=== PATIENT | female | born 1980 | race Caucasian/White ===

== ENCOUNTER 2019-05-01 09:18 | Emergency (ER) | payer OTHER, SELFPAY ==
--- NOTE | ~2019-05-01 | XR_ITS ---
XR finger 1st LT min 2V 05/01/2019 09:41 Indication: Trauma to the left first finger. Finger pain. Procedure: 3 views left first finger Comparison: No prior studies for comparison. Findings: There are mild degenerative changes of the first CMC joint. No fracture, subluxation or dis location. No significant soft tissue abnormality. No radiopaque foreign bodies. Impression: 1: No acute fracture. Reviewed, dictated and finalized at location A. GER FRAUD Impression: 1: No acute fracture.
[2019-05-01 09:27] VITALS: BP 118/69; PULSE 71; RESP 16; TEMP 36.6; O2SAT 100
--- NOTE | 2019-05-01 09:39 | ED.UPPEXIN ---
HPI - Extremity Injury (Upper) General Chief Complaint: Extremity Injury, Upper Stated Complaint: INJURED FINGER Time Seen by Provider: 05/01/19 09:44 Source: patient and RN notes reviewed Mode of arrival: ambulatory Limitations: no limitations History of Present Illness HPI narrative: 38-year-old female who presents to [facility] with 3-day history of injury to left thumb.Patient states she smashed her thumb in the car door on and has pain to the distal region of her thumb and nailbed is black. Patient states that she put a hole in her nailbed and blood escaped which made the throbbing in her nailbed resolve, nail remain s dark in appearance. Patient has some swelling to the distal aspect of her left thumb, full mobility of thumb with no complaints of any tingling or numbness to left thumb. MD complaint: injury to: left and finger (1st) Onset (ago): day(s) Other Extremity Injury: Left: fingers (1st digit) Other injuries: none Handedness: right Place: other Severity: moderate Severity scale (1-10): 4 (4) Relieving factors: cold therapy and other (patient put hole in nail to relieve pressure with blood escaping) Exacerbating factors: other (palpation) Context: direct blow Associated symptoms: denies other symptoms Treatments prior to arrival: NSAIDS Related Data Home Medications Medication Instructions Recorded Confirmed cholecalciferol (vitamin D3) 125 5,000 unit PO DAILY 04/08/19 05/01/19 mcg (5,000 unit) capsule Allergies Allergy/AdvReac Type Severity Reaction Status Date / Time Penicillins Allergy Unknown Hives Verified 05/01/19 09:26 Review of Systems Review of Systems: Narrative: CONSTITUTIONAL: Denies fever, chills, or sweats. EYES: Denies visual changes, redness, or discharge. ENT: Denies rhinorrhea, congestion, sore throat, or otalgia. CARDIOVASCULAR: Denies chest pain, palpitations, or edema. RESPIRATORY: Denies cough or dyspnea. GASTROINTESTINAL: Denies abdominal pain, nausea, vomiting, or diarrhea. GENITOURINARY: Denies dysuria or hematuria. SKIN: Denies rash or itching. MUSCULOSKELETAL: Denies back pain, joint pain, or myalgia.positive pain to left distal thumb and nailbed. NEUROLOGIC: Denies headache, numbness, or weakness. PSYCHIATRIC: Denies anxiety or depression. All systems reviewed & are unremarkable except as noted in HPI and below PMFSH Family History Family History Grandparent Heart attack Father No problems noted. Mother Family history of hypercholesterolemia Hypertension Skin cancer Lichen sclerosus Grandparent Astrocytoma brain tumor Grandparent Family history of prostate cancer Heart failure Other Family history of malignant neoplasm of breast Social History Social History Smoking status: Never smoker Alcohol intake: current Living arrangements: with family Gender identity (if verbalized by the patient): Female Comments At time of signature, agree with nursing past medical, surgical, social and family history. There is no relevant family history pertinent to the presenting complaint Exam Narrative: Exam Narrative: GENERAL: Well-appearing, well-nourished, and in no acute distress. HEAD: Normocephalic, atraumatic. EYES: PERRLA and EOMI. ENT: Nares clear, no rhinorrhea or epistaxis. Mucous membranes moist. NECK: Supple. CHEST: Clear to auscultation. No respiratory distress. HEART: Regular rate and rhythm. No murmur heard. Normal peripheral pulses. ABDOMEN: Soft, nontender, nondistended, normal active bowel sounds. EXTREMITIES: Normal range of motion. No edema.with exception to pain and swelling to distal left thumb with nail bruising present no break in skin integrity, denies any tingling or numbness to her left thumb, strong left radial pulse present.Patient put hole in nail and drained blood from under nail. SKIN: Warm, dry, no rash. N
== END 2019-05-01 10:25 | disposition home or self-care (01) ==
PROVIDERS: Emergency Provider Registered Nurse; PCP Internal Medicine
DX: S60.112A Contusion of left thumb with damage to nail, initial encounter (principal); W23.0XXA Caught, crushed, jammed, or pinched between moving objects, initial encounter
CPT/HCPCS: 73140; 99213; G0463

== ENCOUNTER → 2020-09-18 16:50 | Outpatient (CLI) | payer OTHER, SELFPAY ==
--- NOTE | ~2020-09-18 | MM_ITS ---
EXAMINATION: MM screening [facility] BI w felicitas HISTORY: Screening mammogram TECHNIQUE: Craniocaudal and mediolateral oblique 3-D tomosynthesis images were obtained and synthetic 2-D images were generated. CAD analysis was submitted and interpreted. COMPARISON: 12/10/2018 bilateral digital screening mammogram BREAST PARENCHYMAL COMPOSITION: The breasts are extremely dense, which lowers the sensitivity of mamm ography. FINDINGS: There is no evidence of suspicious mass, calcification, or architectural distortion to sugg est malignancy in either breast. There has been no suspicious interval change. IMPRESSION: 1. No mammographic evidence of malignancy. 2. Recommend routine screening mammography in one year. BI-RADS Category 1: Negative Reviewed, dictated and finalized at location A.
== END ==
PROVIDERS: Visit Provider Obstetrics & Gynecology
DX: Z12.31 Encounter for screening mammogram for malignant neoplasm of breast (principal)
CPT/HCPCS: 77063; 77067

== ENCOUNTER → 2021-12-18 11:24 | Outpatient (CLI) | payer OTHER, SELFPAY ==
--- NOTE | ~2021-12-18 | MM_ITS ---
EXAMINATION: MM screening [facility] BI w felicitas HISTORY: Screening mammogram TECHNIQUE: Craniocaudal and mediolateral oblique 3-D tomosynthesis images were obtained and synthetic 2-D images were generated. CAD analysis was submitted and interpreted. COMPARISON: 09/18/2020, 12/10/2018 BREAST PARENCHYMAL COMPOSITION: The breasts are extremely dense, which lowers the sensitivity of mamm ography. FINDINGS: There is no suspicious mass, calcification, or architectural distortion to suggest malignan cy in either breast. There has been no suspicious interval change. IMPRESSION: 1. No mammographic evidence of malignancy. 2. Recommend routine screening mammography in one year. BI-RADS Category 1: Negative Reviewed, dictated and finalized at location A.
== END ==
PROVIDERS: PCP Obstetrics & Gynecology; Visit Provider Obstetrics & Gynecology
DX: Z12.31 Encounter for screening mammogram for malignant neoplasm of breast (principal)
CPT/HCPCS: 77063; 77067

== ENCOUNTER 2023-01-30 09:17 | Emergency (ER) | payer OTHER, SELFPAY ==
[2023-01-30 09:27] VITALS: BP 128/85; PULSE 83; RESP 16; TEMP 36.6; O2SAT 98
--- NOTE | 2023-01-30 09:28 | ED.URI ---
HPI - URI/Sore Throat General Chief Complaint: Upper Respiratory Infection Stated Complaint: Cough Time Seen by Provider: 01/30/23 09:29 Source: patient Mode of arrival: ambulatory Limitations: no limitations History of Present Illness HPI Narrative: 42-year-old presents for complaint of cough for over 1 week. States she started over the past couple of days with a ?gurgling sound? in the chest and cough is now productive of thick sputum. At the onset she felt weakness and chills, tested negative for covid x2 at home last week. She denies shortness of breath, wheezing, nausea, vomiting, diarrhea, fevers or chills. She is taking [id number] NyQuil for symptoms. Related Data Allergies Allergy/AdvReac Type Severity Reaction Status Date / Time Penicillins Allergy Unknown Hives Verified 01/30/23 09:22 Review of Systems Review of Systems: CONSTITUTIONAL: Denies body aches, fever, chills, or sweats. EYES: Denies visual changes, redness, or discharge. ENT: Denies rhinorrhea, congestion, sore throat, or otalgia. CARDIOVASCULAR: Denies chest pain, palpitations, or edema. RESPIRATORY: Reports cough, denies sob, wheezing. GASTROINTESTINAL: Denies abdominal pain, nausea, vomiting, or diarrhea. GENITOURINARY: Denies dysuria or hematuria. SKIN: Denies rash, itching, or wounds. MUSCULOSKELETAL: Denies back pain, joint pain, or myalgia. NEUROLOGIC: Denies headache, numbness, tingling, or weakness. All systems reviewed & are unremarkable except as noted in HPI and below PMFSH Past Medical History Medical History (Updated 01/30/23 @ 09:37 by Joelle Bundy APRN) No pertinent past medical history Family History Family History Grandparent Heart attack Father No problems noted. Mother Family history of hypercholesterolemia Hypertension Skin cancer Lichen sclerosus Grandparent Astrocytoma brain tumor Grandparent Family history of prostate cancer Heart failure Other Family history of malignant neoplasm of breast Social History Social History Smoking status: Never smoker Alcohol intake: current Alcohol use details: 1-2 glasses of wine a night Living arrangements: with family Gender identity (if verbalized by the patient): Female Comments At time of signature, I have reviewed and agree with nursing past medical, surgical, social and family history unless otherwise noted. Please see nursing chart for further information. There is no relevant family history pertinent to the presenting complaint Exam Narrative: GENERAL: Well-appearing, in no acute distress. EYES: EOMI. No redness or drainage. Conjunctivae normal. ENT: Mucous membranes pink and moist. No rhinorrhea. TMs normal bilaterally. Throat normal. Uvula midline. NECK: Normal AROM. Supple. CHEST: No respiratory distress. Faint left posterior wheeze, otherwise clear. Speaks full sentences. HEART: Regular rate and rhythm. No murmur appreciated. ABDOMEN: Soft, nontender, nondistended, normal active bowel sounds. EXTREMITIES: Normal range of motion. No edema. SKIN: Warm, dry, no rash. Capillary refill normal. Normal skin turgor. NEURO: Alert and oriented x3. Gait steady. PSYCH: Normal affect. Course Course Emergency Course: Patient is aware of diagnosis, understands and agrees to treatment plan. Anticipatory guidance given. Patient agrees to follow-up as directed and is aware of reasons to seek care at the emergency department. Portions of this record may have been created with voice recognition software Level of Care: Express Care Visit Vital Signs Vital signs: Vital Signs Temperature 97.8 F 01/30/23 09:27 Pulse Rate 83 01/30/23 09:27 Respiratory Rate 16 01/30/23 09:27 Blood Pressure 128/85 01/30/23 09:27 Pulse Oximetry 98 01/30/23 09:27 Temperature 97.8 F 01/30/23 09:27 Pulse Ra
== END 2023-01-30 09:39 | disposition home or self-care (01) ==
PROVIDERS: Emergency Provider Nurse Practitioner Family; PCP Internal Medicine
DX: J40 Bronchitis, not specified as acute or chronic (principal)
CPT/HCPCS: 99213; G0463

== ENCOUNTER → 2023-03-12 11:34 | Outpatient (CLI) | payer OTHER, SELFPAY ==
--- NOTE | ~2023-03-12 | MM_ITS ---
EXAMINATION: MM screening [facility] BI w felicitas HISTORY: Screening TECHNIQUE: Craniocaudal and mediolateral oblique 3-D tomosynthesis images were obtained and synthetic 2-D images were generated. CAD analysis was submitted and interpreted. COMPARISON: Comparison to multiple prior studies sequentially, with oldest reviewed study dated 12/10. BREAST PARENCHYMAL COMPOSITION: The breasts are extremely dense, which lowers the sensitivity of mamm ography FINDINGS: There is no evidence of suspicious mass, calcification, or architectural distortion to sugg est malignancy in either breast. There has been no suspicious interval change. IMPRESSION: 1. No mammographic evidence of malignancy. 2. Recommend routine screening mammography in one year. BI-RADS Category 1: Negative Reviewed, dictated and finalized at location A. 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
== END ==
PROVIDERS: PCP Obstetrics & Gynecology; Visit Provider Obstetrics & Gynecology
DX: Z12.31 Encounter for screening mammogram for malignant neoplasm of breast (principal)
CPT/HCPCS: 77063; 77067

== ENCOUNTER 2023-05-21 08:09 | Day surgery (SDC) | payer OTHER, SELFPAY ==
[2023-05-12 10:52] VITALS: BMI 22.6
[2023-05-13 14:37] VITALS: BMI 22.8
[2023-05-21] VITALS (7 sets, daily range): BP systolic 118–131; BP diastolic 56–74; PULSE 69–83; RESP 14–20; TEMP 37.3; O2SAT 99–100; BMI 22.7
--- NOTE | 2023-05-21 09:28 | WPDHPUPDATE1 ---
History and Physical Update Update Date/Time: 05/21/23 09:28 History and Physical has been reviewed, including an updated exam of the patient. There are NO changes in the patient's condition. Risks, benefits, and alternatives have been discussed and questions answered. Patient agrees to proceed with procedure.
--- NOTE | 2023-05-21 09:29 | WPDHPUPDATE1 ---
History and Physical Update Update Date/Time: 05/21/23 09:29 History and Physical has been reviewed, including an updated exam of the patient. There are NO changes in the patient's condition. Risks, benefits, and alternatives have been discussed and questions answered. Patient agrees to proceed with procedure.
[2023-05-21] MEDS: LIDOCAINE HCL 1% PF INJ 5 ML VIAL 20 ML INFILTRATE (11:13)
[2023-05-21] MEDS: BUPivacaine HCL 0.5% PF 30 ML VIAL 20 ML INFILTRATE (11:13)
--- NOTE | 2023-05-21 11:35 | P.OP_ITS ---
Procedure Note - Detailed Date of Procedure 05/21/23 Pre-op Diagnosis Inclusion Cyst Mid Upper Back Post-op Diagnosis Same Procedure Performed Excision mid back ruptured inclusion cyst with 4cm intermediate layered wound closure. Surgeon Eliazar Cui MD Continuous Improvement Director Miriam SILVEIRA Anesthesia Local Indications patient is a 42-year-old female who presented with a ruptured inclusion cyst on her mid upper back region in the midline. She recently had infection of the cyst and spontaneously drained. She presents now for excision of the cyst wall remnants. Findings The cyst approximate [id number]. It appeared to be consistent with a ruptured inclusion cyst. A 4cm intermediate layered wound closure was performed to close the incision. Description of Procedure After informed consent was obtained patient brought to the operating room she was placed prone on the operating table. There the mid upper back region was then prepped and draped usual sterile fashion. Time-out was then performed correctly identifying the patient as well as procedure to be performed. No antibiotics were given as no IV was started. I 1st started by injecting 1% lidocaine mixed with 0.5% Marcaine around the cyst for local anesthetic effect. Once I had adequate anesthesia I then made a vertical elliptical incision to include the whole wall of the ruptured cyst. Dissection carried deeply down through the dermis skin with a scalpel and then when I reached subcutaneous tissues I excised the whole ellipse of tissue incorporating the whole cyst wall. The specimen was measured it was 3x1x1 cm. It was sent to pathology for examination. Hemostasis was then achieved incision utilizing electrocautery. The incision was then closed with multiple layers utilizing interrupted 2-0 V icryl sutures in the deepest portions of the subcutaneous tissues followed by layer of interrupted 3-0 Vicryl sutures in the deep dermal layer, and then lastly closure of the skin utilizing a running subcuticular 4-0 Monocryl suture. The incision was then cleaned and then skin glue was applied. The patient tolerated the procedure well no complications. All sponges, needles, and instrument counts were correct at the end procedure. EBL was __5_cc. The patient was awakened and taken to recovery in stable and satisfactory condition. Implants None Estimated Blood Loss 5 Drains No Packing No Pathology Yes ( inclusion cyst sent to pathology) Complications No immediate complications Condition Stable Disposition PACU [facility] Billing Surgery - Charge Forward: Surgery Billing
== END 2023-05-21 11:45 | disposition home or self-care (01) ==
PROVIDERS: PCP Internal Medicine; Visit Provider Surgery
PROC: (CPT 21931; principal; 2023-05-21 10:00)
DX: L72.0 Epidermal cyst (principal)
CPT/HCPCS: 21931

== ENCOUNTER 2023-05-21 08:18 | Outpatient (NON) | payer OTHER, SELFPAY | END 2023-05-21 08:19 | disposition home or self-care (01) | PROVIDERS: PCP Internal Medicine; Visit Provider Surgery | DX: L72.0 Epidermal cyst (principal) | CPT/HCPCS: 88305 ==

== ENCOUNTER 2024-03-14 11:39 | Outpatient (CLI) | payer OTHER, SELFPAY ==
--- NOTE | ~2024-03-14 | MM_ITS ---
EXAMINATION: MM screening [facility] BI w felicitas HISTORY: Screening TECHNIQUE: Craniocaudal and mediolateral oblique 3-D tomosynthesis images were obtained and synthetic 2-D images were generated. CAD analysis was submitted and interpreted. COMPARISON: 12/10/2018 BREAST PARENCHYMAL COMPOSITION: Dense: The breasts are extremely dense, which lowers the sensitivity of mammography. FINDINGS: There is no evidence of suspicious mass, calcification, or architectural distortion to sugg est malignancy in either breast. There has been no suspicious interval change. IMPRESSION: 1. No mammographic evidence of malignancy. 2. Recommend routine screening mammography in one year. BI-RADS Category 1: Negative Reviewed, dictated and finalized at location B. 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
== END 2024-03-14 11:40 | disposition home or self-care (01) ==
PROVIDERS: PCP Obstetrics & Gynecology; Visit Provider Obstetrics & Gynecology
DX: Z12.31 Encounter for screening mammogram for malignant neoplasm of breast (principal)
CPT/HCPCS: 77063; 77067

== ENCOUNTER 2024-12-26 08:41 | Day surgery (SDC) | payer OTHER, SELFPAY ==
[2024-12-15 08:59] VITALS: BMI 20.1
--- OUTSIDE RECORDS SUMMARY | 2024-12-26 09:06 | XMS_ITS | Patient Health Record ---
Author Organization [facility] Moveline Address [facility] [facility] [address] [place] [address] Care Team Providers Care Director Of Operations For Therapy Name Role Phone Jose Diallo DO Primary Care Provider Gibson Cain Unavailable [phone] Lauri Leroy Unavailable [phone] Daron Chapa Unavailable [phone] Allergies Allergen (clinical drug ingredient) Drug/Non Drug Allergy documented on EMR Reaction Allergy Type Onset Date Status Penicillin Unknown Drug Allergy Active Results Component Value Reference Range Notes UDT Reviewed date:01/04/2024 09:25:11 AM Interpretation: Performing Lab: Notes/Report: THC n 0 - 50 ng/ml Cocaine n 0 - 300 ng/ml Amphetamine n 0 - 1000 ng/ml Buprenorphine (BUP) n 0 - 10 ng/ml Secobarbital (Bar) n 0 - 300 ng/ml Oxazepam (BZO) n 0 - 300 ng/ml 5-mdlsmawztj-9,5-vwoetiao-0,3-diphenylpyrrolidine (ARASH P) n 0 - 300 ng/ml Methamphetamine (MET) n 0 - 1000 ng/ml Methylenedioxymethamphetamine (MDMA) n 0 - 500 ng/ml Morphine (MOP 300/[id number]) n 0 - 300 ng/ml Methadone (MTD) n 0 - 300 ng/ml Phencyclidine (PCP) n 0 - 25 ng/ml Nortriptyline (TCA) n 0 - 1000 ng/ml Oxycodone n 0 - 300 ng/ml x n 0 - 300 ng/ml UDT Reviewed date:12/29/2023 09:26:17 AM Interpretation: Performing Lab: Notes/Report: THC N 0 - 50 ng/ml Cocaine N 0 - 300 ng/ml Amphetamine N 0 - 1000 ng/ml Buprenorphine (BUP) N 0 - 10 ng/ml Secobarbital (Bar) N 0 - 300 ng/ml Oxazepam (BZO) N 0 - 300 ng/ml 6-wauilxlovq-6,6-gguroxna-3,3-diphenylpyrrolidine (ARASH P) N 0 - 300 ng/ml Methamphetamine (MET) N 0 - 1000 ng/ml Methylenedioxymethamphetamine (MDMA) N 0 - 500 ng/ml Morphine (MOP 300/[id number]) N 0 - 300 ng/ml Methadone (MTD) N 0 - 300 ng/ml Phencyclidine (PCP) N 0 - 25 ng/ml Nortriptyline (TCA) N 0 - 1000 ng/ml Oxycodone N 0 - 300 ng/ml x N 0 - 300 ng/ml UDT Reviewed date:08/24/2024 03:13:46 PM Interpretation: Performing Lab: Notes/Report: THC N 0 - 50 ng/ml Cocaine N 0 - 300 ng/ml Amphetamine N 0 - 1000 ng/ml Buprenorphine (BUP) N 0 - 10 ng/ml Secobarbital (Bar) N 0 - 300 ng/ml Oxazepam (BZO) N 0 - 300 ng/ml 3-bhdbbmwafs-1,1-ndzleakh-7,3-diphenylpyrrolidine (ARASH P) N 0 - 300 ng/ml Methamphetamine (MET) N 0 - 1000 ng/ml Methylenedioxymethamphetamine (MDMA) N 0 - 500 ng/ml Morphine (MOP 300/[id number]) N 0 - 300 ng/ml Methadone (MTD) N 0 - 300 ng/ml Phencyclidine (PCP) N 0 - 25 ng/ml Nortriptyline (TCA) N 0 - 1000 ng/ml Oxycodone N 0 - 300 ng/ml x N 0 - 300 ng/ml Reason For Referral No Information Medications Medication SIG (Take, Route, Frequency, Duration) Notes Start Date End Date Status Amphetamine-Dextroamphetami ne 10 MG Tablet 1 tablet Orally once a day; Duration: 30 days take in early afternoon 09/12/2024 Active Multivitamin Active Amphetamine-Dextroamphet ER 20 MG Capsule Extended Release 24 Hour 1 capsule in the morning Orally Once a day; Duration: 30 days 11/23/2024 Active Social History Tobacco Use: Social History Observation Description Date Details (start date - stop date) Never Smoker NA - NA Sex Assigned At : Social History Observation Description Sex Assigned At Female Social History Miscellaneous: Social Info Question Answer Notes Advance Care Planning Are you your own decision-maker Yes Do you have Power of Maintenance Shop 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 No Safety issues: Are there any firearms in the house? Ye s Social History Social Info Question Answer Notes Household: Marital Status: Number of Adults in household: 2 Number of Children in Household: 2 Level of Education: Professional Schools/Masters /PhD Drug/Alcohol: Social Info Question Answer Notes Drugs Have you used drugs other than those for medical reasons in the past 12 months? No AUDIT-C (Standard) Did you have a drink containing alcohol in the past year? Yes How often did you have six or more drinks on one occasion in the past year? Never (0 point) How many drinks did you have on a typical day when you were drinking in the past year? 1 or 2 drinks (0 point) How often did you have a drink containing alcohol in the past year? 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 Problems Problem Type SNOMED Code ICD Code Onset Dates Problem Status W/U Status Risk Notes Problem Generalized anxiety disorder (32252537) Generalized anxiety disorder (F41.1) Active confirmed Problem Attention deficit hyperactivity disorder (872087356) ADHD (attention deficit hyperactivity disorder), combined type (F90.2) Active confirmed Problem Attention deficit hyperactivity disorder (927710037) Adult ADHD (F90.9) Active confirmed Problem Attention deficit hyperactivity disorder (405887989) ADHD (F90.9) Active confirmed Problem Anxiety (14484885) Situational anxiety (F41.8) Active confirmed Vital Signs Heart Rate 78 /min 08/24/2024 Height-cm 172.72 cm 08/24/2024 Blood pressure diastolic 73 mm Hg 08/24/2024 Weight-kg 61.69 kg 08/24/2024 Height 68 in 08/24/2024 Blood pressure systolic 113 mm Hg 08/24/2024 Weight 136 lbs 08/24/2024 BMI 20.68 kg/m2 08/24/2024 Procedures Procedure Date Ordered Date Performed Result Body Sit e ADHD Testing 12/29/2023 N/A Encounters Encounter Location Date Provider Diagnosis [facility], [facility] [address] [place] [address] 12/29/2023 Daron Clubb Adult ADHD F90.9 and Situational anxiety F41.8 [facility] [address] [place] [address] 01/01/2024 Leroy Carreon ADHD F90.9 [facility], [address] [address] [place] [address] 01/07/2024 Daron Clubb ADHD F90.9 [facility], [address] [place] [address] 03/11/2024 Daron Clubb Adult ADHD F90.9 [facility] [address] [place] [address] 04/06/2024 Gibson Morrison ADHD (attention defi cit hyperactivity disorder), combined type F90.2 and Generalized anxiety disorder F41.1 [facility] [address] [place] [address] 05/04/2024 Gibson Morrison ADHD (attention defi cit hyperactivity disorder), combined type F90.2 and Generalized anxiety disorder F41.1 [facility] [address] [place] [address] 05/24/2024 Gibson Morrison ADHD (attention defi cit hyperactivity disorder), combined type F90.2 and Generalized anxiety disorder F41.1 [facility] [address] [place] [address] 08/24/2024 Gibson Morrison Encounter for screen ing for cardiovascular disorders Z13.6 ; Negative depression screening Z13.31 ; ADHD (attention deficit hyperactivity disorder), combined type F90.2 and Generalized anxiety disorder F41.1 [facility] [address] [place] [address] 02/08/2024 Daron Clubb Adult ADHD F90.9 [facility] [address] [place] [address] 05/24/2024 Gbison Morrison [facility] [address] [place] [address] 02/08/2024 Daron Clubb [facility], [facility] [address] [place] [address] 02/08/2024 Daron Clubb [facility], [facility] [address] [place] [address] 03/07/2024 [facility], [facility] [address] [place] [address] 03/08/2024 Daron Clubb [facility], [facility] [address] [place] [address] 03/08/2024 [facility], [facility] [address] [place] [address] 03/08/2024 [facility], [facility] [address] [place] [address] 04/12/2024 Gibson Morrison ADHD (attention defi cit hyperactivity disorder), combined type F90.2 [facility], [facility] [address] [place] [address] 04/21/2024 Gibson Morrison ADHD (attention defi cit hyperactivity disorder), combined type F90.2 [facility], [facility] [address] [place] [address] 05/11/2024 Gibson Salgadooza [facility], [facility] [address] [place] [address] 05/25/2024 Gibson Morrison [facility], [facility] [address] [place] [address] 05/26/2024 Gibson Morrison ADHD (attention defi cit hyperactivity disorder), combined type F90.2 [facility], [facility] [address] [place] [address] 07/11/2024 Gibson Morrison ADHD (attention defi cit hyperactivity disorder), combined type F90.2 [facility], [facility] [address] [place] [address] 07/11/2024 Gibson Morrison [facility], [facility] [address] [place] [address] 08/19/2024 [facility] [address] [place] [address] 09/12/2024 Gibson Morrison [facility], [facility] [address] [place] [address] 09/12/2024 Gibson Salgadooza ADHD (attention defi cit hyperactivity disorder), combined type F90.2 [facility] [address] [place] [address] 09/16/2024 Gibson Morrison [facility], [facility] [address] [place] [address] 09/18/2024 [facility] [address] [place] [address] 10/24/2024 [facility] [address] [place] [address] 10/26/2024 [facility] [address] [facility] [address] [place] [address] 10/26/2024 Gibson Morrison ADHD (attention defi cit hyperactivity disorder), combined type F90.2 [facility] [address] [facility] [address] [place] [address] 11/23/2024 Gibson Morrison ADHD (attention defi cit hyperactivity disorder), combined type F90.2 Assessments Encounter Date Diagnosis (ICD Code) Assessment Notes Treatment Notes Treatment Clinical Notes Section Notes 05/26/2024 ADHD (attention deficit hyperactivity disorder), combined type (ICD-10 - F90.2) 02/08/2024 Adult ADHD (ICD-10 - F90.9) 03/11/2024 Adult ADHD (ICD-10 - F90.9) 1. Attention Deficit Hyperactivity Disorder (ADHD) - Continue atomoxetine 80 mg daily for another month. - Schedule appointment within a month to discuss adding stimulant medication if appropriate. - Encourage maintaining clean and organized environment to improve concentration. - Patient reports slightly better concentration when walking, no drastic changes overall. - Patient expresses difficulty sitting for extended periods, except when reading enjoyable books. 2. Generalized Anxiety Disorder (ADAIR) - ADAIR score improved from 12 to 5. - Monitor anxiety levels at next appointment. - Discuss potential impact of starting stimulant medication on anxiety. - Advise avoiding caffeine when starting stimulant medication, if prescribed. - Patient reports feeling less stressed, possibly due to upcoming job change. 3. Phone and Cornel Distractions - Encourage her self-control and limiting phone usage during work hours. - Suggest deleting games or using do not disturb function to minimize distractions. - Acknowledge challenge of balancing work-related phone use with personal distractions. 4. Caffeine Consumption - Patient does not experience increased focus or energy from caffeine intake. - Advise avoiding caffeine if stimulant medication is prescribed. - Consider switching to decaffeinated beverages. - Patient reports drinking coffee in morning without significant wired effect. 5. Additional Recommendations - Implement organizational strategies like put it away, don't put it down. - Use baskets in each room to manage clutter. - Maintain clean work environment to minimize distractions. - Note: Drug screen was negative, should not pose issues for potential stimulant medication. 09/12/2024 ADHD (attention deficit hyperactivity disorder), combined type (ICD-10 - F90.2) 10/26/2024 ADHD (attention deficit hyperactivity disorder), combined type (ICD-10 - F90.2) 11/23/2024 ADHD (attention deficit hyperactivity disorder), combined type (ICD-10 - F90.2) 05/24/2024 ADHD (attention deficit hyperactivity disorder), combined type (ICD-10 - F90.2) 04/06/2024 Generalized anxiety disorder (ICD-10 - F41.1) 1. ADHD, predominantly inattentive type: - Discontinue atomoxetine due to insufficient improvement in focus and attention - Start Adderall XR (amphetamine-de xtroamphetamine ) 15 mg in the morning for 10 days Plan: - Patient to message provider after 7 days to update on medication effectiveness - Schedule follow-up appointment in 1 month to evaluate medication response and adjust dosage if necessary - Encourage behavioral modifications such as setting timers for work periods and breaks, creating a daily routine, and prioritizing tasks 2. Anxiety: - Monitor anxiety levels while on Adderall XR, as stimulant medications can potentially exacerbate anxiety symptoms Plan: - Encourage patient to implement stress management techniques, such as deep breathing exercises, mindfulness, and prioritizing tasks 3. Sleep disturbance: - Assess the impact of Adderall XR on sleep quality, as stimulant medications can affect sleep if taken too late in the day Plan: - Encourage patient to maintain good sleep hygiene, including establishing a consistent sleep schedule, creating a relaxing bedtime routine, and avoiding caffeine and electronic devices before bedtime 4. Alcohol consumption: - Monitor alcohol intake, as excessive alcohol consumption can interfere with medication effectiveness and overall health Plan: - Encourage moderation in alcohol consumption, following recommended guidelines for women (up to 1 drink per day) 40 minutes spent with patient reviewing pt hx and discussing treatment options and plan. 5 minutes spent reviewing notes from previous visit with Daron Majano. 04/06/2024 ADHD (attention deficit hyperactivity disorder), combined type (ICD-10 - F90.2) 1. ADHD, predominantly inattentive type: - Discontinue atomoxetine due to insufficient improvement in focus and attention - Start Adderall XR (amphetamine-de xtroamphetamine ) 15 mg in the morning for 10 days Plan: - Patient to message provider after 7 days to update on medication effectiveness - Schedule follow-up appointment in 1 month to evaluate medication response and adjust dosage if necessary - Encourage behavioral modifications such as setting timers for work periods and breaks, creating a daily routine, and prioritizing tasks 2. Anxiety: - Monitor anxiety levels while on Adderall XR, as stimulant medications can potentially exacerbate anxiety symptoms Plan: - Encourage patient to implement stress management techniques, such as deep breathing exercises, mindfulness, and prioritizing tasks 3. Sleep disturbance: - Assess the impact of Adderall XR on sleep quality, as stimulant medications can affect sleep if taken too late in the day Plan: - Encourage patient to maintain good sleep hygiene, including establishing a consistent sleep schedule, creating a relaxing bedtime routine, and avoiding caffeine and electronic devices before bedtime 4. Alcohol consumption: - Monitor alcohol intake, as excessive alcohol consumption can interfere with medication effectiveness and overall health Plan: - Encourage moderation in alcohol consumption, following recommended guidelines for women (up to 1 drink per day) 40 minutes spent with patient reviewing pt hx and discussing treatment options and plan. 5 minutes spent reviewing notes from previous visit with Daron Majano. 12/29/2023 Adult ADHD (ICD-10 - F90.9) 1. Suspected ADHD - Patient reports difficulty focusing, especially at work, since at least 2019 after covid - Patient endorses difficulty sustaining attention, feeling restless, and interrupting others - No history of ADHD symptoms in childhood - Patient reports being able to focus on enjoyable activities like reading but struggles with work-related tasks Plan: a. Schedule ADHD evaluation (computer-based test) b. Follow-up appointment one week after the test to review results c. Initiate Atomoxetine (Strattera) 25 mg daily for 2 weeks, then increase to 40 mg daily d. Monitor response to Atomoxetine and consider referral for stimulant medication if needed e. Advised patient about potential side effects of Atomoxetine, including headaches, constipation, and GI issues 2. 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 Monitor anxiety levels during follow-up appointments b. Consider referral for therapy or additional medication if anxiety worsens or does not improve 3. Sleep disturbance - Patient reports recent difficulty sleeping, possibly related to pre-menopause Plan: a. Monitor sleep quality during follow-up appointments b. Consider further evaluation or treatment if sleep disturbance persists or worsens 4. Routine health maintenance Plan: a. Order blood work: CBC, CMP, lipid panel, vitamin B, vitamin D, TSH, and LFT b. Instruct patient to schedule mammogram c. Follow up on results and address any abnormalities as needed 5. Prescription cost concern - Patient's initial cost for Atomoxetine at [facility] is $200 Plan: a. Instruct patient to inquire about insurance coverage and consider using GoodRx b. If cost remains prohibitive, patient may contact provider via the adi to discuss alternative pharmacy options 6. Patient education - Provided information about ADHD symptoms and treatment - Advised patient to download the clinic's adi for direct communication with provider - Discussed potential side effects of Atomoxetine and proper usage 12/29/2023 Situational anxiety (ICD-10 - F41.8) 1. Suspected ADHD - Patient reports difficulty focusing, especially at work, since at least 2019 after covid - Patient endorses difficulty sustaining attention, feeling restless, and interrupting others - No history of ADHD symptoms in childhood - Patient reports being able to focus on enjoyable activities like reading but struggles with work-related tasks Plan: a. Schedule ADHD evaluation (computer-based test) b. Follow-up appointment one week after the test to review results c. Initiate Atomoxetine (Strattera) 25 mg daily for 2 weeks, then increase to 40 mg daily d. Monitor response to Atomoxetine and consider referral for stimulant medication if needed e. Advised patient about potential side effects of Atomoxetine, including headaches, constipation, and GI issues 2. 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 Monitor anxiety levels during follow-up appointments b. Consider referral for therapy or additional medication if anxiety worsens or does not improve 3. Sleep disturbance - Patient reports recent difficulty sleeping, possibly related to pre-menopause Plan: a. Monitor sleep quality during follow-up appointments b. Consider further evaluation or treatment if sleep disturbance persists or worsens 4. Routine health maintenance Plan: a. Order blood work: CBC, CMP, lipid panel, vitamin B, vitamin D, TSH, and LFT b. Instruct patient to schedule mammogram c. Follow up on results and address any abnormalities as needed 5. Prescription cost concern - Patient's initial cost for Atomoxetine at [facility] is $200 Plan: a. Instruct patient to inquire about insurance coverage and consider using GoodRx b. If cost remains prohibitive, patient may contact provider via the adi to discuss alternative pharmacy options 6. Patient education - Provided information about ADHD symptoms and treatment - Advised patient to download the clinic's adi for direct communication with provider - Discussed potential side effects of Atomoxetine and proper usage 01/01/2024 ADHD (ICD-10 - F90.9) 01/07/2024 ADHD (ICD-10 - F90.9) Assessment and plan reviewed with patient Call for problems with medication, side effects or need for dosage change Compliance issues reviewed Discussed the risks/benefits of this medication Discussed medication side effects Return if symptoms worsen Treatment options reviewed. discussed that it can take weeks to see full therapeutic effects of psychotropic medications. discussed when to seek emergency services. discussed crisis prevention hotline 988. 1. ADHD - Currently on atomoxetine 25mg with no significant improvement in focus. - Plan: a. Increase atomoxetine to 40mg for 3 days, then 80mg. b. Follow up in 1 month to assess effectiveness. - Patient reports increased energy but not improved focus. 2. Headaches - Patient reports headaches for last 3 days, but not today. - Plan: a. Monitor headaches and consider potential causes like medication side effects or allergies. b. Advise reporting worsening or persistent headaches. - Headaches started after few days on medication. 3. Anxiety - Patient reports work-related anxiety at 11/06. - Plan: a. Continue monitoring anxiety levels. 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 4. Difficulty Sleeping - Patient reports ongoing difficulty sleeping. - Plan: Continue monitoring sleep patterns during follow ups. a. Consider referral or interventions if persists/worsen s. - Patient mentioned always having some sleep difficulty. 5. ADHD Test Results - Patient inquired about ADHD test results. - Plan: a. Provide printed copy of results. - Findings suggest ADHD combined presentation impacting home/work functioning. 04/12/2024 ADHD (attention deficit hyperactivity disorder), combined type (ICD-10 - F90.2) 04/21/2024 ADHD (attention deficit hyperactivity disorder), combined type (ICD-10 - F90.2) 05/04/2024 ADHD (attention deficit hyperactivity disorder), combined type (ICD-10 - F90.2) 07/11/2024 ADHD (attention deficit hyperactivity disorder), combined type (ICD-10 - F90.2) 08/24/2024 Encounter for screening for cardiovascular disorders (ICD-10 - Z13.6) 05/04/2024 Generalized anxiety disorder (ICD-10 - F41.1) stable 05/24/2024 Generalized anxiety disorder (ICD-10 - F41.1) stable 08/24/2024 Negative depression screening (ICD-10 - Z13.31) 08/24/2024 ADHD (attention deficit hyperactivity disorder), combined type (ICD-10 - F90.2) 08/24/2024 Generalized anxiety disorder (ICD-10 - F41.1) stable 12/29/2023 Other Learning About Depression Screening material was printed Learning About Depression Screening material was printed Assessment and plan reviewed with patient Call for problems with medication, side effects or need for dosage change Compliance issues reviewed Discussed the risks/benefits of this medication Discussed medication side effects Return if symptoms worsen Treatment options reviewed. discussed that it can take weeks to see full therapeutic effects of psychotropic medications. discussed when to seek emergency services. discussed crisis prevention hotline [phone]., Atomoxetine Oral Capsule (ATOMOXETINE - ORAL) material was printed 1. Suspected ADHD - Patient reports difficulty focusing, especially at work, since at least 2019 after covid - Patient endorses difficulty sustaining attention, feeling restless, and interrupting others - No history of ADHD symptoms in childhood - Patient reports being able to focus on enjoyable activities like reading but struggles with work-related tasks Plan: a. Schedule ADHD evaluation (computer-based test) b. Follow-up appointment one week after the test to review results c. Initiate Atomoxetine (Strattera) 25 mg daily for 2 weeks, then increase to 40 mg daily d. Monitor response to Atomoxetine and consider referral for stimulant medication if needed e. Advised patient about potential side effects of Atomoxetine, including headaches, constipation, and GI issues 2. 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 Monitor anxiety levels during follow-up appointments b. Consider referral for therapy or additional medication if anxiety worsens or does not improve 3. Sleep disturbance - Patient reports recent difficulty sleeping, possibly related to pre-menopause Plan: a. Monitor sleep quality during follow-up appointments b. Consider further evaluation or treatment if sleep disturbance persists or worsens 4. Routine health maintenance Plan: a. Order blood work: CBC, CMP, lipid panel, vitamin B, vitamin D, TSH, and LFT b. Instruct patient to schedule mammogram c. Follow up on results and address any abnormalities as needed 5. Prescription cost concern - Patient's initial cost for Atomoxetine at [facility] is $200 Plan: a. Instruct patient to inquire about insurance coverage and consider using GoodRx b. If cost remains prohibitive, patient may contact provider via the adi to discuss alternative pharmacy options 6. Patient education - Provided information about ADHD symptoms and treatment - Advised patient to download the clinic's adi for direct communication with provider - Discussed potential side effects of Atomoxetine and proper usage 03/11/2024 Other Assessment and plan reviewed with patient Call for problems with medication, side effects or need for dosage change Compliance issues reviewed Discussed the risks/benefits of this medication Discussed medication side effects Return if symptoms worsen Treatment options reviewed. discussed that it can take weeks to see full therapeutic effects of psychotropic medications. discussed when to seek emergency services. discussed crisis prevention hotline 988. 1. Attention Deficit Hyperactivity Disorder (ADHD) - Continue atomoxetine 80 mg daily for another month. - Schedule appointment within a month to discuss adding stimulant medication if appropriate. - Encourage maintaining clean and organized environment to improve concentration. - Patient reports slightly better concentration when walking, no drastic changes overall. - Patient expresses difficulty sitting for extended periods, except when reading enjoyable books. 2. Generalized Anxiety Disorder (ADAIR) - ADAIR score improved from 12 to 5. - Monitor anxiety levels at next appointment. - Discuss potential impact of starting stimulant medication on anxiety. - Advise avoiding caffeine when starting stimulant medication, if prescribed. - Patient reports feeling less stressed, possibly due to upcoming job change. 3. Phone and Cornel Distractions - Encourage her self-control and limiting phone usage during work hours. - Suggest deleting games or using do not disturb function to minimize distractions. - Acknowledge challenge of balancing work-related phone use with personal distractions. 4. Caffeine Consumption - Patient does not experience increased focus or energy from caffeine intake. - Advise avoiding caffeine if stimulant medication is prescribed. - Consider switching to decaffeinated beverages. - Patient reports drinking coffee in morning without significant wired effect. 5. Additional Recommendations - Implement organizational strategies like put it away, don't put it down. - Use baskets in each room to manage clutter. - Maintain clean work environment to minimize distractions. - Note: Drug screen was negative, should not pose issues for potential stimulant medication. 05/04/2024 Other 1. Attention Deficit Hyperactivity Disorder (ADHD): - Patient reports improved focus on Adderall 20 mg compared to atomoxetine but experiences mood crashes in the evening. Plan: - Discontinue Adderall and initiate a trial of Vyvanse (lisdexamfetamine ) 50 mg daily for 2 weeks. - Patient to monitor for improvement in focus and mood stability. - Consider increasing the dose if patient feels 50 mg is not sufficient. - Instruct patient to message the provider before running out of the 2-week supply to discuss efficacy and potential dose adjustments. 2. Alcohol consumption: - Patient reports cutting out alcohol during the week and consuming a small amount of wine before bed to help with pre-menopause symptoms. Plan: - Encourage the patient to continue limiting alcohol intake. - Monitor for any potential interactions with the new medication (Vyvanse). 3. Pre-menopause: - Patient mentions experiencing pre-menopause symptoms. Plan: - Continue monitoring symptoms. - Discuss further evaluation or management options if symptoms worsen or become bothersome. 4. Job transition: - Patient is starting a new job in May and is concerned about managing stress and focus during this transition. Plan: - Encourage patient to monitor the effectiveness of Vyvanse during her time off work. - Communicate with the provider regarding any concerns or adjustments needed before starting the new job. - Provide support and resources for stress management as needed. 05/24/2024 Other 1. ADHD: - Patient reports dissatisfaction with Vyvanse, describing increased energy but lack of motivation and overall feeling of malaise. - Patient prefers the effects of Adderall, but experienced a crash at the end of the day. Plan: - Discontinue Vyvanse. - Start Mydayis, which has a longer duration of action, to potentially avoid the late afternoon crash. Obtain prior authorization from insurance. - If Mydayis is not effective or causes side effects, consider switching back to Adderall XR with the addition of an immediate-release formulation in the afternoon, while monitoring for potential sleep disturbances. 2. Possible Dysthymia or Minor Depression: - Patient reports persistent tiredness, mood fluctuations, and occasional lack of motivation, raising concerns about possible dysthymia or minor depression. - Patient denies feeling unhappy or having significant functional impairment. Plan: - Monitor patient's mood and energy levels while on Mydayis, as the medication may also have a positive impact on these symptoms. - If symptoms persist or worsen, consider further evaluation for dysthymia or minor depression, including a thorough psychosocial assessment and potential referral to a mental health professional. 3. Lifestyle and Sleep Hygiene: - Patient reports a busy schedule, late bedtime, and early wake time, which may contribute to feelings of tiredness and mood fluctuations. Plan: - Encourage the patient to prioritize sleep hygiene and self-care, including establishing a consistent sleep schedule, creating a relaxing bedtime routine, and ensuring a sleep-conducive environment. - Recommend the patient to consider delegating some responsibilities to her spouse or other support systems to reduce overall stress and improve work-life balance. 08/24/2024 Other Ny Bahena, an adult patient with ADHD, presents for medication management and follow-up on stimulant therapy. Attention Deficit Hyperactivity Disorder (ADHD) Assessment: Patient is currently managed on Adderall XR 20 mg daily on weekdays and immediate-release Adderall 10 mg daily on weekends. The current regimen appears to be effective for symptom control without significant side effects. Patient reports improved focus at work with the 20 mg XR dose. The addition of a 10 mg dose later in the day was trialed but resulted in excessive stimulation. Weekend use of 10 mg immediate-release helps maintain some symptom control while allowing for normal appetite. Sleep disturbances are noted, with occasional nighttime awakenings and difficulty returning to sleep, occurring less than 5 nights per month. sleeve setter administration of medication has resolved previous crash symptoms experienced towards dinner time. Plan: - Continue Adderall XR 20 mg PO daily Thursday through Thursday - Continue Adderall IR 10 mg PO daily on weekends - Patient to take medication early in the morning upon waking - Follow-up appointment in 4 months for medication management and prescription refill - Interim prescription refills may be provided if patient is unable to schedule exactly at 4-month dakota, contingent on scheduling a follow-up appointment the note is transcribed using speech recognition software. It is a reflection of a visit with the patient. It might have some inaccuracy, including medication names and transcribing errors, though efforts have been made to correct them. Plan Of Treatment Pending Test Test Name Order Date Vitamin B12 and Folate 12/29/2023 Vitamin D, 1,25 Dihydroxy 12/29/2023 CBC 12/29/2023 Liver Function Test (LFT) 12/29/2023 LIPID PANEL, STANDARD (7600) 12/29/2023 TSH+FREE T4 (07012) 12/29/2023 COMPREHENSIVE METABOLIC PANEL (62441) ADHD Testing 12/29/2023 Insurance Providers Payer Name Payer Address Payer Phone Subscriber Number Group Number Insured Name Patient Relationship to Insured Coverage Start Date Coverage End Date [employer] [address] [place] [address] [id number] Ny Bahena Self - patient is the insured Medical (General) History Medical History History ICD Code abdominal aortic aneurysm: No atrial fibrillation: No chronic fatigue syndrome: No essential tremor: No hyperlipidemia: No hypertension: No Parkinson's disease: No restless leg syndrome: No stroke: No subdural hematoma: No type 1 diabetes mellitus: No type 2 diabetes mellitus: No vitamin B12 deficiency: No vitamin D deficiency: Yes vitamin D deficiency: No undefined
--- OUTSIDE RECORDS SUMMARY | 2024-12-26 09:06 | XMS_ITS | Clinical Summary ---
Author Organization [facility] Address [address] [place] [address] Care Team Providers Care Decaler Name Role Phone Eliezer Bajwa MD Unavailable Source Comments [facility],non-owned Affiliates and Associated Physician Practices is amultiple site organization consisting of ambulatory clinics and hospital sitesin [place], [place], [place] and [place]. This disclosure is being madepursuant to the Care Everywhere program and may not contain all information available regarding this patient. Last updated 17.[facility] Allergies Active Allergy Reactions Criticality Noted Date Comments Penicillins 08/02/2008 Medications * Be aware that medications may not be up to date on this document. Alwaysverify current medications with the patient. No known medications Active Problems Problem Noted Date Diagnosed Date Encounter for supervision of other normal pregna ncy 01/27/2011 Overview (02/04/2015): Anxiety 06/05/2009 Screening for cervical cancer 08/02/2008 Overview (08/02/2008): 05/25/07 WNL Resolved Problems Problem Noted Date Diagnosed Date Resolved Date Supervision of normal first 01/02/2009 07/23/2010 Immunizations Immunization Administration Dates Next Due FLU VACCINE TRI IIV3 SPLIT PF IM (FLUVIRIN) 12/28 Family History Medical History Relation Name Comments Hypercholesterolemia Father Hypertension Father Cancer Maternal Grandfather colon Diabetes Maternal Grandfather Heart Disease Maternal Grandfather Hypertension Mother Hypercholesterolemia Paternal Grandmother Relation Name Status Comments Father Maternal Grandfather Mother Paternal Grandmother Social History Tobacco Use Types Packs/Day Years Used Date Smoking Tobacco: Never Alcohol Use Standard Drinks/Week Comments Yes 7.5 (1 standard drink = 0.6 oz p ure alcohol) Stopped when Comments No Sex and Gender Information Value Date Recorded Sex Assigned at Not on file Legal Sex Female 11:52 AM MILEAGE CLERK Gender Identity Not on file Sexual Orientation Not on file Last Filed Vital Signs Vital Sign Reading Time Taken Comments Blood Pressure 123/84 03/18/2011 10:15 AM MILEAGE CLERK Pulse 62 03/18/2011 10:15 AM MILEAGE CLERK Temperature - - Respiratory Rate - - Oxygen Saturation - - Inhaled Oxygen Concentration - - Weight 66.7 kg (147 lb) 03/18/2011 10:15 AM MILEAGE CLERK Height 175.3 cm (5' 9) 03/18/2011 10:15 AM MILEAGE CLERK Body Mass Index 21.71 03/18/2011 10:15 AM MILEAGE CLERK Plan of Treatment Health Maintenance Due Date Last Done Comments COLOGUARD (AGES 45-75) - COLON CA SCREENING 1978 COLON MONITORING 1978 COLONOSCOPY - COLON CA SCREENING 1978 CT COLONOGRAPHY - COLON CA SCREENING 1978 Colorectal Cancer Screening 1978 FIT - COLON CA SCREENING 1978 FLEX SIG - COLON CA SCREENING 1978 LIPID TESTING 1978 MAMMOGRAM 1978 HEPATITIS C SCREENING 11/01/1996 DTAP/TDAP/TD VACCINES (1 - Tdap) 1997 HEPATITIS B VACCINE (1 of 3 - 19+ 3-dose series) 1997 PAP SMEAR 03/18/2014 03/18/2011, 06/29, 08/09/2009, Additional history exists DEPRESSION SCREENING 03/30/2024 COVID-19 VACCINE ( season) 2024 INFLUENZA VACCINE (#1) 2024 01/09/2011 ZOSTER VACCINE (1 of 2) 2028 HIV SCREENING Completed 08/20/2010, 12/27/2008 HIB VACCINE Aged Out No longer eligi ble based on patient's age to complete this topic HPV VACCINE Aged Out No longer eligi ble based on patient's age to complete this topic MENINGOCOCCAL (Group B) VACCINE SHARED DECISION-MAKING Aged Out No longer eligible based on patient's age to complete this topic MENINGOCOCCAL GROUPS A/C/Y/W VACCINE Aged Out No longer eligible based on patient's age to complete this topic PNEUMOCOCCAL VACCINE Aged Out No long er eligible based on patient's age to complete this topic Procedures Procedure Name Priority Date/Time Associated Diagnosis Comments PAP IG RFLX HPV ASCU Routine 03/18/2011 10:16 AM MILEAGE CLERK Routine follow-up HIV-1 HIV-2 ANTIBODY Routine 08/20/2010 10:27 AM CDT Supervision of other normal Absence of menstruation examination or test, positive result from Last 3 Months or Most Recently Relevant to Health Maintenance Results * PAP SMEAR IG RFLX HPV ASCU (PO REF LAB) (03/18/2011 10:16 AM MILEAGE CLERK) Diagnosis [facility] ACCOUNT BILL Comment:NEGATIVE FOR INTRAEP ITHELIAL LESION AND MALIGNANCY. Specimen Adequacy [facility] ACCOUNT BILL Comment: Satisfactory for evaluation. Endocervical and/or squamous metaplastic cells (endocervical component) are present. Clinician Provided ICD9 [facility] ACCOUNT BILL Comment:V24.2 ; Routine post follow-up Performed by [facility] ACCOUNT BILL Comment:Shiloh burgess, Manufacturing Engineering Manager (ASCP) Comment . [facility] ACCOUNT BILL Note [facility] ACCOUNT BILL Comment: The Pap smear is a screening test designed to aid in the detection of premalignant and malignant conditions of the uterine cervix. It is not a diagnostic procedure and should not be used as the sole means of detecting cervical cancer. Both false-positive and false-negative reports do occur. . IGLBP CPT Code Automation [facility] ACCOUNT BILL Comment: This liquid based ThinPrep(R) pap test was screened with the use of an image guided system. Reflex [facility] ACCOUNT BILL Comment: The HPV DNA reflex criteria were not met with this specimen result therefore, no HPV testing was performed. . MICROSCOPIC CYTOLOGIC EXAMINATION OF SMEAR OF SPECIMEN FROM FEMALE GENITAL TRACT PREPARED USING PAPANICOLAOU TECHNIQUE / Unknown 03/18/2011 10:16 AM MILEAGE CLERK 03/19/2011 7:17 AM MILEAGE CLERK Narrative [facility] ACCOUNT BILL - 03/21/2011 10:37 AM MILEAGE CLERK No. of containers..01 CYTYC Thin Prep Vial Resulting Agency Comment [facility] [address] [place] [id number] [place] Eliezer Bajwa MD LAB - PATHOLOGY/CYTOLOGY ORDERAB LES Final Result [facility] ACCOUNT BILL [address] [place] [address] * HIV-1 HIV-2 ANTIBODY (08/20/2010 10:27 AM CDT) HIV-1 Antibody O.D. Ratio <1.00 <1.00 [facility] ACCOUNT BILL Comment:Index Value: Specime n reactivity relative to the negative cutoff. HIV-1/HIV-2 Non Reactive Non Reactive [facility] ACCOUNT BILL BLOOD SPECIMEN / Unknown 08/20/2010 10:27 AM CDT 08/20/2010 3:46 PM CDT Narrative Resulting Agency Comment [facility] [address] [id number] us Eliezer Bajwa MD LAB - CHEMISTRY ORDERABLES Final Result Performing Organization Address City/[facility] Co de Phone Number [facility] ACCOUNT BILL [address] [place] [address] from Last 3 Months or Most Recently Relevant to Health Maintenance Insurance [facility] SELF PAY NO INSURANCE Member Subscriber Plan / Payer (Ef fective for All Dates) Name:Cristina Bahena A Member ID:Not on file Relation to Subscriber:Not on file Name:CRISTINA BAHENA Subscriber ID:Not on file Address: [address] [place], [place] [id number] Payer ID:Not on file Group ID:Not on file Type:Self Pay Address: [place], [place] SELF PAY NO INSURANCE Member Subscriber Plan / Payer (Ef fective for All Dates) Name:Cristina Bahena A Member ID:Not on file Relation to Subscriber:Not on file Name:CRISTINA BAHENA Subscriber ID:Not on file Address: [address] [place] [address] Payer ID:Not on file Group ID:Not on file Type:Self Pay Address: [place], [place] SELF PAY NO INSURANCE Member Subscriber Plan / Payer (Ef fective for All Dates) Name:Cristina Bahena Member ID:Not on file Relation to Subscriber:Not on file Name:CRISTINA BAHENA Subscriber ID:Not on file Address: [address] [place] [address] Payer ID:Not on file Group ID:Not on file Type:Self Pay Address: [place], [place] [address] [place] [place] [id number] Care Teams Decaler Relationship Specialty Start Date End Date Eliezer Bajwa MD [address] [place] [id number] PCP - OBGYN 08/02/08
--- OUTSIDE RECORDS SUMMARY | 2024-12-26 09:06 | XMS_ITS | Encounter Summary ---
Author Organization [facility] Address [address] [place] [address] Care Team Providers Care Die Engraver Name Role Phone Eliezer Bajwa MD Unavailable Encounter Details Date Type Department Care Team (Late st Contact Info) Description 07/25/2010 [facility] Eliezer Bajwa MD [address] [place] [address] Social History Tobacco Use Types Packs/Day Years Used Date Smoking Tobacco: Never Alcohol Use Standard Drinks/Week Comments Yes 7.5 (1 standard drink = 0.6 oz p ure alcohol) Stopped when Comments Yes Sex and Gender Information Value Date Recorded Sex Assigned at Not on file Legal Sex Female 11:[address]PRETER Gender Identity Not on file Sexual Orientation Not on file documented as of this encounter Plan of Treatment Not on file documented as of this encounter Visit Diagnoses Not on filedocumented in this encounter Care Teams Die Engraver Relationship Specialty Start Date End Date Eliezer Bajwa MD [address] [place] [address] PCP - OBGYN 08/02/08 documented as of this encounter
--- OUTSIDE RECORDS SUMMARY | 2024-12-26 09:06 | XMS_ITS | Clinical Summary ---
Author Organization [facility] Address [address] [place] [id number] Phone Care Team Providers Care Network Technology Instructor Name Role Phone Unavailable Primary Care Provider Unavailabl e Allergies Active Allergy Reactions Criticality Noted Date Comments Penicillins Hives High 07/02/2009 Medications Cholecalciferol, Vitamin D3, (VITAMIN D3) 2,000 unit Oral Cap Take 1 Tab by mouth daily. Active Active Problems No known active problems Resolved Problems Problem Noted Date Diagnosed Date Resolved Date Rolando Lopez contractions 02/06/2011 0 09/11/2011 02/0702/06/2011 09/11/2011 Labor, pitocin, GBS pos, O pos 07/02/2009 09/11/2011 Immunizations Immunization Administration Dates Next Due Influenza Seasonal Unspecified Formulation IM Tdap Vaccine > 7 Yo IM VFC 07/03/2009 Family History Medical History Relation Name Comments High Cholesterol Father Hypertension Father Cancer Maternal Grandfather Colon Cancer Maternal Grandfather Diabetes Maternal Grandfather Hypertension Mother High Cholesterol Paternal Grandmother Relation Name Status Comments Father Alive Maternal Grandfather Mother Alive Paternal Grandmother Social History Tobacco Use Types Packs/Day Years Used Date Smoking Tobacco: Never Smokeless Tobacco: Never Alcohol Use Standard Drinks/Week Comments No 0 (1 standard drink = 0.6 oz pur e alcohol) Comments No Sex and Gender Information Value Date Recorded Sex Assigned at Not on file Legal Sex Female 5:51 AM DYNAMITE RECLAIMER Gender Identity Not on file Sexual Orientation Not on file Last Filed Vital Signs Vital Sign Reading Time Taken Comments Blood Pressure 129/72 08/13/2015 10:00 AM CDT Pulse 61 08/13/2015 10:00 AM CDT Temperature 36.6 C (97.9 F) 02/09/2011 7:45 AM DYNAMITE RECLAIMER Respiratory Rate 18 02/09/2011 7:45 AM DYNAMITE RECLAIMER Oxygen Saturation 97% 02/07/2011 4:25 AM DYNAMITE RECLAIMER Inhaled Oxygen Concentration - - Weight 64.4 kg (142 lb) 08/13/2015 10:00 AM CDT Height 172.7 cm (5' 8) 06/27/2014 3:12 PM CDT Body Mass Index 21.59 06/27/2014 3:12 PM CDT Plan of Treatment Health Maintenance Due Date Last Done Comments HEPATITIS B VACCINES (1 of 3 - 19+ 3-dose series) 1997 PAP SMEAR 08/12/2018 08/13/2015, 07/28, 06/27/2014, Additional history exists BREAST CANCER SCREENING 2018 DTAP/TDAP/TD VACCINES (2 - Td or Tdap) 07/04/2019 07/03/2009 CERVICAL CANCER SCREENING 08/12/2020 HPV/Cotest (21-29) 08/12/2020 08/13/2015, 0 06/27/2014, 05/31/2013, Additional history exists HPV/Cotest (30-65) 08/12/2020 08/13/2015, 0 06/27/2014, 05/31/2013, Additional history exists COLORECTAL SCREENING 11/07/2023 Colorectal Cancer Screening 11/07/2023 FIT-DNA Q 3 years 11/07/2023 FIT/FOBT Q 1 year 11/07/2023 Flex Sig/CT Colonography Q 5 years 11/07/2023 INFLUENZA VACCINE (#1) 2024 12/28/2010 HPV VACCINES Aged Out No longer eligi ble based on patient's age to complete this topic Procedures Procedure Name Priority Date/Time Associated Diagnosis Comments CERV/VAG CYTO SCREEN PAP RLFX HPV Routine 08/13/2015 10:40 AM CDT Well woman exam with routine gynecological exam from Last 3 Months or Most Recently Relevant to Health Maintenance Results * CERV/VAG CYTOPATH, THIN PREP IMAGR RFLX HPV (CP) (08/13/2015 10:40 AM CDT) CLINICAL INFORMATION SEE COMMENT 08/17/2015 9:55 AM CDT [facility] Comment:Information not prov ided LAST MENSTRUAL PERIOD SEE COMMENT 08/17/2015 9:55 AM CDT [facility] Comment:INFORMATION NOT PROV IDED PREV PAP: SEE COMMENT 08/17/2015 9:55 AM CDT [facility] Comment:INFORMATION NOT PROV IDED PREV BX: SEE COMMENT 08/17/2015 9:55 AM CDT [facility] Comment:INFORMATION NOT PROV IDED SOURCE Endocervix 08/17/2015 9:55 AM CDT [facility] ADEQUACY: SEE COMMENT 08/17/2015 9:55 AM CDT [facility] Comment: Satisfactory for evaluation. Endocervical/transformation zone component present. Age and/or menstrual status not provided INTERPRETATION SEE COMMENT 08/17/2015 9:55 AM CDT [facility] Comment:Negative for intraep ithelial lesion or malignancy. COMMENT SEE COMMENT 08/17/2015 9:55 AM CDT [facility] Comment: This Pap test has been evaluated with computer assisted technology. FIRMWARE ENGINEER: SEE COMMENT 08/17/2015 9:55 AM CDT [facility] Comment: VERONICA, CT(ASCP) CT screening location: [place] [address] Administration [place] [address] Endocervical Collection / Unknown 08/13/2015 10:40 AM CDT 08/13/2015 9:55 PM CDT Narrative [facility] - 08/17/2015 9:55 AM CDT Performing Organization Information: Site ID: [place] Name: [facility] Address: [facility] Administration [place] [id number] Director: Gutierrez Martino MD us Eliezer Bajwa MD PATHOLOGY/CYTOLOGY ORDERABLES Fi nal Result [facility] [address] [place] [address], [place] from Last 3 Months or Most Recently Relevant to Health Maintenance Insurance [employer] Advance Directives For more information, please contact: [phone] * Full Code (Latest Code Status on File) Date Activated Date Inactivated Comments 02/07/2011 12:00 PM 02/09/2011 1:33 PM * Full Code Date Activated Date Inactivated Comments 02/06/2011 10:02 PM 02/07/2011 12:00 PM * Full Code Date Activated Date Inactivated Comments 02/06/2011 1:02 PM 02/06/2011 4:55 PM * Full Code Date Activated Date Inactivated Comments 07/02/2009 11:14 PM 07/04/2009 1:50 PM * Full Code Date Activated Date Inactivated Comments 07/02/2009 4:11 AM 07/02/2009 11:14 PM
[2024-12-26 09:10] VITALS: BP 114/75; PULSE 76; RESP 15; TEMP 36.9; O2SAT 100
[2024-12-26] MEDS: LACTATED RINGERS 1,000 ML 150 ML IV CONT (09:20)
--- NOTE | 2024-12-26 09:36 | WPDANESEPPF ---
Anes - Initial Pre Proc Eval Procedure: Operation Date: 12/26/24 10:30 Proposed Procedures p Screening Colonoscopy - Pedro Luis Veliz DO Date/Time: 12/26/24 09:36 Surgeon: Pedro Luis Veliz DO Pre Op Diagnosis: Neoplasm Screening Patient Data Age: 44 Gender: F Height: 1.73 m Weight: 59.85 kg Last Vital Signs Temp 98.5 F 12/26/24 09:10 Pulse 76 12/26/24 09:10 Resp 15 12/26/24 09:10 BP 114/75 12/26/24 09:10 Pulse Ox 100 12/26/24 09:10 O2 Del Method Room Air 12/26/24 09:10 Allergies Allergy/AdvReac Type Severity Reaction Status Date / Time Penicillins Allergy Unknown Hives Verified 12/26/24 09:05 Home Medications ?Medication ?Instructions ?Recorded ?Confirmed ?Type cholecalciferol (vitamin D3) 50 50 mcg PO DAILY 05/07/23 12/26/24 History mcg (2,000 unit) capsule dextroamphetamine-amphetamine ER 20 mg PO DAILY 12/15/24 12/26/24 History 20 mg 24hr capsule,extend release Patient hx anesthesia problems: none Family hx anesthesia problems: none Results Review: All pre-operative results and documents have been reviewed as part of the pre-operative evaluation. [facility] Past Medical History Medical History No pertinent past medical history Surgical History Surgical History History of excision of mass Excision mid back ruptured inclusion cyst with 4cm intermediate layered wound closure. 05/21/23 SAW Family History Family History Grandparent Heart attack Father No problems noted. Mother Family history of hypercholesterolemia Hypertension Skin cancer Lichen sclerosus Grandparent Astrocytoma brain tumor Grandparent Family history of prostate cancer Heart failure Other Family history of malignant neoplasm of breast Social History Social History Smoking status: Never smoker Second hand tobacco smoke exposure: No Alcohol intake: current Drinks per week: 5 Alcohol use details: 1-2 glasses of wine a night Substance use: current Substance use type: does not use Do You Feel Safe in your Home?: Yes Lack of Transportation: No Lack of Food: Never True Current Housing: I Have Housing Concerned About Future Housing: No Difficulty Paying Gas/Electric Bills: No Difficulty Paying for Meds: No Currently Unemployed: No Education: Master's Degree or Higher Difficulty w/ Childcare or Family Care: No Living arrangements: with family Occupation/Education: occupation 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 Informed Consent: The patient's anesthetic plan and its attendant risks and benefits were discussed with the patient/family/POA. Questions were solicited and answers provided to the satisfaction of the patient/family/POA.
--- NOTE | 2024-12-26 10:30 | PM.IMHP ---
H&P: HPI History of Present Illness Date/Time: 12/26/24 10:30 Chief Complaint: screening for colorectal cancer Narrative: this is a 44-year-old woman who presents for her 1st colonoscopy. She denies any hematochezia or melena. She denies family history of colon cancer. Review of Systems Review of Systems: All systems reviewed & are unremarkable except as noted in HPI and below Constitutional: Constitutional: Denies chills, Denies fever(s), Denies headache(s) and Denies weight loss Eyes: Eyes: Denies change in vision ENT: Denies dizziness, Denies headache(s), Denies neck mass and Denies throat swelling Cardiovascular: Cardiovascular: Denies chest pain, Denies lightheadedness and Denies dyspnea Respiratory: Respiratory: Denies cough, Denies dyspnea and Denies wheezing Gastrointestinal: Gastrointestinal: Denies abdominal pain, Denies change in bowel habits, Denies nausea and Denies vomiting Genitourinary: Genitourinary: Denies hematuria and Denies dysuria Musculoskeletal: Musculoskeletal: Reports as per HPI Integumentary/Breasts: Skin/Breast: Reports as per HPI Neurologic: Denies dizziness and Denies headache(s) Allergic/Immunologic: Allergic/Immunologic: Denies throat swelling and Denies wheezing PMFSH Past Medical History Medical History No pertinent past medical history Surgical History Surgical History History of excision of mass Excision mid back ruptured inclusion cyst with 4cm intermediate layered wound closure. 05/21/23 SAW Family History Family History Grandparent Heart attack Father No problems noted. Mother Family history of hypercholesterolemia Hypertension Skin cancer Lichen sclerosus Grandparent Astrocytoma brain tumor Grandparent Family history of prostate cancer Heart failure Other Family history of malignant neoplasm of breast Social History Social History Smoking status: Never smoker Second hand tobacco smoke exposure: No Alcohol intake: current Drinks per week: 5 Alcohol use details: 1-2 glasses of wine a night Substance use: current Substance use type: does not use Do You Feel Safe in your Home?: Yes Lack of Transportation: No Lack of Food: Never True Current Housing: I Have Housing Concerned About Future Housing: No Difficulty Paying Gas/Electric Bills: No Difficulty Paying for Meds: No Currently Unemployed: No Education: Master's Degree or Higher Difficulty w/ Childcare or Family Care: No Living arrangements: with family Occupation/Education: occupation 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 Gender identity (if verbalized by the patient): Female Spiritual care concerns: No Meds Home Medications and Allergies Home Medications ?Medication ?Instructions ?Recorded ?Confirmed ?Type cholecalciferol (vitamin D3) 50 50 mcg PO DAILY 05/07/23 12/26/24 History mcg (2,000 unit) capsule dextroamphetamine-amphetamine ER 20 mg PO DAILY 12/15/24 12/26/24 History 20 mg 24hr capsule,extend release Allergies Allergy/AdvReac Type Severity Reaction Status Date / Time Penicillins Allergy Unknown Hives Verified 12/26/24 09:05 Vital Signs Vital Signs - 24 hr 12/26/24 09:10 Temperature 98.5 F Pulse Rate 76 Respiratory Rate 15 Blood Pressure 114/75 Pulse Oximetry 100 Oxygen Delivery Room Air Exam Const: General: no acute distress and alert Orientation/consciousness: patient oriented x3 HENMT: Head: normocephalic and atraumatic Ears: hearing grossly normal bilaterally Face/Nose/Sinus: Normal nares present Mouth: Yes Normal oral and palatal mucosa present Eyes: Periorbital: periorbital findings normal Sclera: sclerae normal EOM: EOMs intact bilaterally Neck: Neck: normal visual inspection, no lymphadenopathy and trachea midline Chest: Chest palpation & inspection: normal inspection of the chest Resp: Effort & Inspection: normal respiratory effort Auscultation: clear to auscultation bilaterally Cardio: Jugular venous distension: no JVD Rate: regular rate Rhythm: regular rhythm Heart sounds: S1 normal heart sound present and S2 normal heart sound present Peripheral pulses: Peripheral pulses 2+ throughout GI: Inspection: normal to inspection GI Palp: Yes Soft to palpation, No Tenderness to palpation present (GI), No Guarding due to palpation present (GI) and No Rebound tenderness present Percussion: Yes normal to percussion Auscultation: normal bowel sounds : General: Yes no CVA tenderness Back/Spine/Pelvis: Back: no CVA tenderness Neuro: General: patient oriented x3, no focal motor deficits and CN's II-XI intact bilaterally Cognition (Neuro): normal cognition Speech: normal speech Motor exam (neuro): 5/5 motor strength present throughout Extrem: General: capillary refill normal and no clubbing, cyanosis or edema Assessment and Plan Assessment and plan (1) Screening for colon cancer: Code(s): Z12.11 - Encounter for screening for malignant neoplasm of colon Status: Acute Assessment and Plan: I have recommended colonoscopy. I have discussed the procedure, risks, benefits, and alternatives. Questions were answered. Patient is agreeable to proceed.
--- NOTE | 2024-12-26 10:37 | WPDANESPN ---
Anes - Prog Note Post-Op Date/Time: 12/26/24 10:37 Vital Signs: Last Vital Signs Temp 98.5 F 12/26/24 09:10 Pulse 76 12/26/24 09:10 Resp 15 12/26/24 09:10 BP 114/75 12/26/24 09:10 Pulse Ox 100 12/26/24 09:10 O2 Del Method Room Air 12/26/24 09:10 Pain Score (VAS): no Patient Feedback: Patient satisfied with anesthetic care.
[2024-12-26 10:59] VITALS: BP 87/43; PULSE 71; RESP 14; O2SAT 100
[2024-12-26 11:09] VITALS: BP 102/56; PULSE 72; RESP 16; O2SAT 100
[2024-12-26 11:18] VITALS: BP 101/64; PULSE 63; RESP 20; O2SAT 100
== END 2024-12-26 11:26 | disposition home or self-care (01) ==
PROVIDERS: PCP Nurse Practitioner; Visit Provider Surgery
PROC: 0DJD8ZZ Inspection of Lower Intestinal Tract, Via Natural or Artificial Opening Endoscopic (ICD-10-PCS; CPT 45378; principal; 2024-12-26 10:30)
DX: Z12.11 Encounter for screening for malignant neoplasm of colon (principal)
CPT/HCPCS: 45378